=== PATIENT | female | born 2000 | race Caucasian/White ===

== ENCOUNTER 2020-03-22 11:02 | Emergency (ER) | payer BC, OTHER, SELFPAY ==
[2020-03-22 11:14] VITALS: BP 108/56; PULSE 72; RESP 16; TEMP 37.3; O2SAT 99
--- NOTE | 2020-03-22 11:15 | ED.GENADULT ---
HPI - General Adult General Chief complaint: Urogenital-Female Stated complaint: yeast infection Time Seen by Provider: 03/22/20 11:15 Source: patient Mode of arrival: ambulatory Limitations: no limitations History of Present Illness HPI narrative: 19-year-old female patient presents to the [facility] with complaints of burning vaginal pain, sometimes with urination, itchiness and irritation to the vaginal area for the past 2 to 3 days. Patient states she is currently on her menstrual cycle. Patient states she has does not have any concerns about STDs because she is in a monogamous relationship. Patient denies any vaginal discharge. Denies any fevers, body aches or chills. Patient states the symptoms are very similar to when she has had a vaginal yeast infection before but does not feel like they are UTI symptoms because she has not had really pain with urination urgency or frequency. Patient states she did try taking some [id number] AZO but it did nothing. Patient states that she did have a little bit of pain with intercourse last night. Patient denies or breast-feeding at this time. Related Data Home Medications Medication Instructions Recorded Confirmed montelukast [Singulair] mg 03/22/20 Allergies Allergy/AdvReac Type Severity Reaction Status Date / Time No Known Allergies Allergy Verified 03/22/20 11:21 Review of Systems Review of Systems: Narrative: CONSTITUTIONAL: Denies fever, chills, or sweats. EYES: Denies visual changes, redness, or discharge. ENT: Denies rhinorrhea, congestion, sore throat, or otalgia. CARDIOVASCULAR: Denies chest pain, palpitations, or edema. RESPIRATORY: Denies cough or dyspnea. GASTROINTESTINAL: Denies abdominal pain, nausea, vomiting, or diarrhea. GENITOURINARY: Denies dysuria or hematuria. Positive burning vaginal pain, itchiness x2 to 3 days SKIN: Denies rash or itching. MUSCULOSKELETAL: Denies back pain, joint pain, or myalgia. NEUROLOGIC: Denies headache, numbness, or weakness. PSYCHIATRIC: Denies anxiety or depression. PMFSH Comments At the time of my signature I agree with nursing past medical history, surgical, social, and family history. There is no relevant family history pertinent to the presenting complaint. Exam Narrative: Exam Narrative: GENERAL: Well-appearing, well-nourished, and in no acute distress. HEAD: Normocephalic, atraumatic. EYES: PERRLA and EOMI. ENT: Nares clear, no rhinorrhea or epistaxis. Mucous membranes moist. NECK: Supple. No lymphadenopathy CHEST: Clear to auscultation. No respiratory distress. HEART: Regular rate and rhythm. No murmur heard. Normal peripheral pulses. ABDOMEN: Soft, nontender, nondistended, normal active bowel sounds. : Deferred due to menstrual cycle EXTREMITIES: Normal range of motion. No edema. SKIN: Warm, dry, no rash. NEURO: No focal deficits. Alert and oriented x3. Course Vital Signs Vital signs: Vital Signs Temperature 37.3 C 03/22/20 11:14 Pulse Rate 72 03/22/20 11:14 Respiratory Rate 16 03/22/20 11:14 Blood Pressure 108/56 L 03/22/20 11:14 Pulse Oximetry 99 03/22/20 11:14 Temperature 37.3 C 03/22/20 11:14 Pulse Rate 72 03/22/20 11:14 Respiratory Rate 16 03/22/20 11:14 Blood Pressure 108/56 L 03/22/20 11:14 Pulse Oximetry 99 03/22/20 11:14 Vital signs reviewed. Medical Decision Making Differential Diagnosis Differential Diagnosis: Differential diagnosis: Uncomplicated lower UTI, uncomplicated UTI, pyelonephritis gonorrhea, chlamydia, Trichomonas, bacterial vaginosis, herpes, HIV, yeast infection, urinary tract infection. Unable to perform vaginal exam due to patient being on menstrual cycle at this time. Discussed with patient that since she does not want to be tested for STDs at this time and her urine does not show any evidence of UTI and she feels that she does not necessarily have UTI symptoms we can go ahead and try and treat her for vaginal candidiasis s
== END 2020-03-22 11:35 | disposition home or self-care (01) ==
PROVIDERS: Emergency Provider Nurse Practitioner Family; PCP Nurse Practitioner Family
DX: B37.3 Candidiasis of vulva and vagina (principal); N76.0 Acute vaginitis; J45.909 Unspecified asthma, uncomplicated
CPT/HCPCS: 81003; 81025; 99213; G0463